=== PATIENT | female | born 2000 | race Caucasian/White ===

== ENCOUNTER 2021-02-17 05:37 | Emergency (ER) | payer OTHER ==
[~2021-02-17] VITALS: Ht 172.7 cm; Wt 177.0 kg
--- NOTE | 2021-02-17 05:54 | PHYS DOC ---
General Adult EDM: Chief Complaint: ALLERGIC REACTION HPI: HPI: "... I am having an allergic reaction.. I ate these strawberry Truffles.. and all sudden felt like my asthma was getting worse.. and mouth swelling.. that was about 4:30.. .. I took three tablets of Benadryl.. 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 I though it would be okay..." Patient is a 20 year old female who presents with complaints of allergic reaction after eating Truffles flavored artificially with strawberry. Patient is not allergic to natural strawberries. Patient does have a history of asthma., Hypertension, morbid obesity,. Pt. in past normally followed with [facility] for care. No recent travel. No recent changes in meds. Only different food was the strawberry Turffles. No specific ill contacts. Review of Systems: Review of Systems: Constitutional: Denies fever or chills Eyes: Denies change in visual acuity HENT: Complaints of nasal congestion . Complains of swelling in mouth Respiratory: Complains of wheezing and shortness of breath Cardiovascular: Denies chest pain or edema GI: Denies abdominal pain, nausea, vomiting, bloody stools or diarrhea : Denies dysuria Musculoskeletal: Denies back pain or joint pain Integument: Denies rash Neurologic: Denies headache, focal weakness or sensory changes Endocrine: Denies polyuria or polydipsia Lymphatic: Denies swollen glands Psychiatric: Denies depression or anxiety Family History: Family History: Noncontributory Current Medications: Current Meds: See nursing for home meds Allergies: Allergies: Strawberries Physical Exam: PE: Constitutional: Moderate acute distress, non-toxic appearance. [] HENT: Normocephalic, atraumatic, bilateral external ears normal, oropharynx moist, no oral exudates, nose swollen injected turbinates clear rhinorrhea Eyes: PERRLA, EOMI, conjunctiva normal, no discharge. [] Neck: Normal range of motion, no tenderness, supple, no stridor. [] Cardiovascular: Tachycardia heart rate regular rhythm, no murmur [] Lungs & Thorax: Bilateral breath sounds equal at apex with scattered wheezing on auscultation [] Abdomen: Bowel sounds normal, soft, no tenderness, no masses, no pulsatile masses. Morbidly obese Skin: Warm, dry, no erythema, no rash. [] Back: No tenderness, no CVA tenderness. [] Extremities: No tenderness, no cyanosis, no clubbing, ROM intact, bilateral ankle edema. [] Neurologic: Alert and oriented X 3, normal motor function, normal sensory function, no focal deficits noted. [] Psychologic: Affect anxious , judgement normal, mood normal. [] EKG: EKG: [] Radiology/Procedures: Radiology/Procedures: [] Heart Score: C/O Chest Pain: N/A Risk Factors: Risk Factors: DM, Current or recent (<one month) smoker, HTN, HLP, family history of CAD, obesity. Risk Scores: Score 0 - 3: 2.5% MACE over next 6 weeks - Discharge Home Score 4 - 6: 20.3% MACE over next 6 weeks - Admit for Clinical Observation Score 7 - 10: 72.7% MACE over next 6 weeks - Early Invasive Strategies Course & Med Decision Making: Course & Med Decision Making Pertinent Labs and Imaging studies reviewed. (See chart for details) Plan discharge the patient responds adequately to steroids. Pepcid 20 mg twice a day, Benadryl 25 to 50 mg 4 times a day, MDI 2 puffs 4 times a day. Take daily prednisone 50 mg a day x 5 d. Impression: 1. Allergic Reaction-strawberry flavoring 2. Hypertension 3. History of asthma [] Dragon Disclaimer: Dragon Disclaimer: This electronic medical record was generated, in whole or in part, using a voice recognition dictation system. Departure Departure: Referrals: PCP,NO (PCP) Scripts Famotidine (PEPCID) 20 Mg Tablet 20 MG PO BID for Allergic for 10 Days, #20 TAB Prov: CLARY CHANDLER MD 02/17/21 Prednisone (PREDNISONE) 50 Mg Tablet 50 MG PO DAILY for allergic for 5 Days, #5 TAB Prov: CLARY CHANDLER MD 02/17/21 Dragon Disclaimer This chart was dictated in whole or in part using Voice Recognition software in a busy, high-work load, and often noisy Emergency Department environment. It may contain unintended and wholly unrecognized errors or omissions. CLARY CHANDLER MD Feb 17, 2021 05:54
[2021-02-17] MEDS ORDERED: methylPREDNISolone SOD SUCC PF 125 MG/2 ML VIAL. IV ONE (06:00)
[2021-02-17] MEDS ORDERED: MAGNESIUM HYDROXIDE 2,400 MG/30 ML ORAL.SUSP. PO ONE (06:00)
[2021-02-17] MEDS ORDERED: FAMOTIDINE 20 MG/2 ML VIAL IVP ONE (06:00)
[2021-02-17] MEDS ORDERED: ALBUTEROL SULFATE 8GM INHALER. INH ONE (06:00)
[2021-02-17] MEDS ORDERED: ALBUTEROL SULFATE 8GM INHALER. ONE (06:07)
[2021-02-17] MEDS ORDERED: PRED50TA PO (06:13)
[2021-02-17] MEDS ORDERED: FAMO-63 PO (06:13)
[2021-02-17 06:45] VITALS: BP 137/72
== END 2021-02-17 06:52 | disposition home or self-care (01) ==
LOC: ER 05:37
DX: T78.1XXA Other adverse food reactions, not elsewhere classified, initial encounter (principal); I10 Essential (primary) hypertension; J45.909 Unspecified asthma, uncomplicated; X58.XXXA Exposure to other specified factors, initial encounter
CPT/HCPCS: 94640; 96374; 96375; 99284; J2930; J3490; 94664